=== PATIENT | female | born 1990 | race African-American/Black ===

== ENCOUNTER 2021-10-19 14:23 | Emergency (ER) | payer MEDICAID ==
[2021-10-19] MEDS ORDERED: Ketorolac Tromethamine 30 MG/ML VIAL ONE (16:32)
[2021-10-19] MEDS ORDERED: Metoclopramide HCl 10 MG/2 ML VIAL ONE (16:33)
== END 2021-10-19 18:11 | disposition home or self-care (01) ==
LOC: ERS 14:23
DX: G43.909 Migraine, unspecified, not intractable, without status migrainosus (principal); I10 Essential (primary) hypertension; F17.210 Nicotine dependence, cigarettes, uncomplicated
CPT/HCPCS: 96365; 96366; 96375; J1885; J2765